=== PATIENT | male | born 1950 | race Caucasian/White ===

== ENCOUNTER → 2016-04-09 | Outpatient (CLI) | payer OTHER ==
[2016-04-09 13:22] LABS: ALT/SGPT 35 U/L (12-78); BLOOD UREA NITROGEN 13 mg/dl (7-18); BUN/CREATININE RATIO 13.3 (10-20); CALCIUM 9.6 mg/dl (8.5-10.1); CARBON DIOXIDE 31 mmol/L (21-32); CHLORIDE 105 mmol/L (98-107); CHOLESTEROL 147 mg/dl (0-200); CREATININE 0.95 mg/dl (0.60-1.40); GLUCOSE 141 mg/dl (70-99); POTASSIUM 4.3 mmol/L (3.5-5.1); SODIUM 142 mmol/L (136-145)
[2016-04-09 13:26] LABS: CHOLESTEROL/HDL RATIO 4.2; HDL CHOLESTEROL 35 mg/dl; LDL CHOLESTEROL CALCULATED 89 mg/dl; TRIGLYCERIDES 117 mg/dl (0-150); VERY LOW DENSITY LIPOPROT CALC 23 mg/dl
== END | disposition home or self-care (01) ==
LOC: C.LABMFLN 07:57
PROVIDERS: ATTEND Family Medicine
DX: Z11.59 Encounter for screening for other viral diseases (principal); I10 Essential (primary) hypertension; Z13.220 Encounter for screening for lipoid disorders

== ENCOUNTER → 2016-05-29 | Outpatient (CLI) | payer OTHER ==
--- NOTE | 2016-05-29 13:16 | DIAGNOSTIC IMAGING REPORT ---
TESTICULAR ULTRASOUND HISTORY: Right scrotal enlargement. N40.0 BPH (benign prostatic hyperplasia)[id number] COMPARISON: None. FINDINGS: Right testis: 5.1 x 3.7 x 1.5 cm. There are no intratesticular masses. Normal color flow. No hydrocele. The epididymis is unremarkable. Left testis: 5.2 x 3.6 x 2.2 cm. There are no intratesticular masses. Normal color flow. No hydrocele. A 6 mm cyst within the epididymal head.. There is a mesh overlying the right inguinal region consistent with prior hernia repair. However, there is a recurrent large right inguinal hernia containing bowel and fat which extends into the scrotum. IMPRESSION: 1. Normal bilateral testes. 2. No significant hydrocele. 3. Large right inguinal hernia containing bowel and fat which extends into the scrotum. Electronically signed by: Romaine Becker M.D. 05/29/2016 1:15 PM Dictated Date/Time: 05/29/2016 1:11 PM
== END | disposition home or self-care (01) ==
LOC: C.ULTR 12:07
PROVIDERS: ATTEND Urology
DX: N40.0 Benign prostatic hyperplasia without lower urinary tract symptoms (principal); K40.90 Unilateral inguinal hernia, without obstruction or gangrene, not specified as recurrent